=== PATIENT | female | born 1980 | race Two or more races ===

== ENCOUNTER → 2020-08-29 | Outpatient (CLI) | payer BC | LOC: US 14:01 | PROVIDERS: ATTEND Emergency Medicine | DX: E04.9 Nontoxic goiter, unspecified (principal) | CPT/HCPCS: 76536 ==

== ENCOUNTER → 2022-02-15 | Outpatient (CLI) | payer BC | LOC: US 11:44 | PROVIDERS: ATTEND Emergency Medicine | DX: E04.1 Nontoxic single thyroid nodule (principal) | CPT/HCPCS: 76536 ==